=== PATIENT | female | born 1975 | race Caucasian/White ===

== ENCOUNTER 2018-07-24 07:33 | Emergency (ER) | payer OTHER ==
[~2018-07-24] VITALS: Ht 157.5 cm; Wt 95.3 kg
[~2018-07-24 07:33] MED LIST: multivitamins
[2018-07-24 07:42] VITALS: BP 133/68
[2018-07-24] MEDS ORDERED: ONDANSETRON 4 MG ODT PO ONE (07:45)
--- NOTE | 2018-07-24 07:45 | NUR ---
BIB SON WITH C/O EMESIS > 8 EPISODES X YESTERDAY; GENERAL WEAKNESS DENIES LOOSE/WATERY STOOLS HX--DENIES RX---NONE
[2018-07-24] MEDS ORDERED: KETOROLAC 60 MG/2 ML VIAL IM ONE (07:50)
[2018-07-24 09:23] VITALS: BP 127/71
--- NOTE | 2018-07-24 09:23 | NUR ---
Patient discharged with v/s stable. Written and verbal after care instructions given and explained. Patient alert, oriented and verbalized understanding of instructions. Ambulatory with steady gait. All questions addressed prior to discharge. ID band removed. Patient advised to follow up with PMD. Rx of motrin/zofran given. Patient educated on indication of medication including possible reaction and side effects. Opportunity to ask questions provided and answered.
== END 2018-07-24 09:23 | disposition home or self-care (01) ==
LOC: MED 07:33
DX: R11.2 Nausea with vomiting, unspecified (principal); R10.13 Epigastric pain; Z90.49 Acquired absence of other specified parts of digestive tract
CPT/HCPCS: 81002; 81025; 99283; J1885; Q0162

== ENCOUNTER 2018-07-30 04:16 | Emergency (ER) | payer OTHER ==
[~2018-07-30] VITALS: Ht 157.5 cm; Wt 90.7 kg
[2018-07-30 04:17] VITALS: BP 133/76
--- NOTE | 2018-07-30 04:23 | NUR ---
PT TAKEN TO BED 11
[2018-07-30] MEDS ORDERED: ONDANSETRON 4 MG/2 ML VIAL IVP ONE (04:25)
[2018-07-30] MEDS ORDERED: NACL 0.9% 1,000 ML IV ONE (04:25)
[2018-07-30] MEDS ORDERED: MORPHINE SULFATE 4 MG/ML SYR IVP ONE (04:25)
--- NOTE | 2018-07-30 04:33 | NUR ---
Dr. Arora evaluating patient at bedside.
--- NOTE | 2018-07-30 04:40 | NUR ---
PATIENT PRESENTS TO ED WITH ABD PAIN X 6 DAYS. PT STATES SHE HAS LOSS OF APPETITE, IS CONSTIPATED N/V, AND PAIN AT 8/10. ABD IS FLAT NON-TENDER, WITH BOWEL SOUNDS ACTIVE IN ALL 4 QUADRANTS. SKIN IS PINK/WARM/DRY; AAOX4 WITH EVEN AND STEADY GAIT; PT DENIES ANY FEVER, CP, SOB, OR COUGH AT THIS TIME; VSS; PATIENT POSITIONED FOR COMFORT; HOB ELEVATED; BEDRAILS UP X2; BED DOWN. ER MD MADE AWARE OF PT STATUS.
[2018-07-30 04:56] LABS: BASOPHILS # (AUTO) 0.1 K/uL (0.00-0.22); BASOPHILS % (AUTO) 1.1 % (0.0-2.0); EOSINOPHILS # (AUTO) 0.2 K/uL (0-0.4); EOSINOPHILS % (AUTO) 2.7 % (0.0-4.0); HEMATOCRIT 37.8 % (36-48); HEMOGLOBIN 12.4 g/dL (12.0-16.0); LYMPHOCYTES # (AUTO) 2.1 K/uL (2.5-16.5); LYMPHOCYTES % (AUTO) 30.1 % (20.5-51.1); MEAN CORPUSCULAR HEMOGLOBIN 27 pg (27-31); MEAN CORPUSCULAR HGB CONC 33 g/dL (33-37); MEAN CORPUSCULAR VOLUME 83.1 fL (80-94); MONOCYTES # (AUTO) 0.4 K/uL (0.8-1.0); MONOCYTES % (AUTO) 5.6 % (1.7-9.3); NEUTROPHILS # (AUTO) 4.3 K/uL (1.8-7.7); NEUTROPHILS % (AUTO) 60.5 % (42.2-75.2); PLATELET COUNT (AUTO) 335 K/uL (140-450); RED BLOOD CELL COUNT(AUTO) 4.55 MIL/uL (4.20-5.40); RED CELL DISTRIBUTION WIDTH 14.7 % (11.6-13.7); WHITE BLOOD COUNT (AUTO) 7.1 K/uL (4.8-10.8)
[2018-07-30 04:57] LABS: APPEARANCE,URINE CLEAR (CLEAR); BILIRUBIN,URINE NEGATIVE (NEGATIVE); BLOOD, URINE MODERATE (NEGATIVE); COLOR,URINE YELLOW (YELLOW); LEUKOCYTE ESTERASE ,URINE NEGATIVE (NEGATIVE); NITRITE, URINE NEGATIVE (NEGATIVE); UGLUCOSE NEGATIVE (NEGATIVE)
[2018-07-30 05:13] LABS: RBC,URINE 50-80 /HPF (0-5); WBC,URINE 0-5 (RARE) /HPF (0-5)
[2018-07-30 05:14] LABS: ANION GAP 10.9 (8-16); CREATININE 0.8 mg/dL (0.6-1.3); POTASSIUM 3.9 mmol/L (3.5-5.1)
[2018-07-30 05:17] LABS: ALBUMIN 3.4 g/dL (3.4-5.0); TOTAL BILIRUBIN 0.2 mg/dL (0.0-1.0)
--- NOTE | 2018-07-30 05:21 | NUR ---
PATIENT GOING TO CT
--- NOTE | 2018-07-30 05:35 | NUR ---
PT RETURNED FROM CT
--- NOTE | 2018-07-30 06:06 | NUR ---
Dr. Arora re-evaluating patient at bedside.
--- NOTE | 2018-07-30 06:15 | NUR ---
PT AMBULATED TO RESTROOM
[2018-07-30] MEDS ORDERED: KETOROLAC 30 MG/ML VIAL IVP ONE (06:20)
[2018-07-30 06:58] VITALS: BP 125/80
--- NOTE | 2018-07-30 06:58 | NUR ---
Patient discharged with v/s stable. Written and verbal after care instructions given and explained. Patient alert, oriented and verbalized understanding of instructions. Ambulatory with steady gait. All questions addressed prior to discharge. ID band removed. Patient advised to follow up with PMD. Rx of FLOMAX, NAPROSYN, COLACE, AND NORCO given. Patient educated on indication of medication including possible reaction and side effects. PT IS WAITING FOR KIDS TO COME PICK HER UP DUE TO MORPHINE ADMINISTERED. Opportunity to ask questions provided and answered.
== END 2018-07-30 06:58 | disposition home or self-care (01) ==
LOC: MED 04:16
DX: N20.1 Calculus of ureter (principal); Z79.899 Other long term (current) drug therapy; Z90.49 Acquired absence of other specified parts of digestive tract
CPT/HCPCS: 36415; 74176; 80053; 81001; 83690; 85025; 96361; 96374; 96375; 99284; J1885; J2270; J2405; J7030

== ENCOUNTER 2019-02-24 08:33 | Outpatient (CLI) | payer OTHER ==
[2019-02-24 08:59] LABS: BASOPHILS % (AUTO) 0.7 % (0.0-2.0); EOSINOPHILS # (AUTO) 0.1 K/uL (0-0.4); EOSINOPHILS % (AUTO) 2.1 % (0.0-4.0); HEMATOCRIT 36.4 % (36-48); HEMOGLOBIN 12.1 g/dL (12.0-16.0); LYMPHOCYTES # (AUTO) 1.7 K/uL (2.5-16.5); LYMPHOCYTES % (AUTO) 27.6 % (20.5-51.1); MEAN CORPUSCULAR HEMOGLOBIN 28 pg (27-31); MEAN CORPUSCULAR HGB CONC 33 g/dL (33-37); MEAN CORPUSCULAR VOLUME 83.1 fL (80-94); MONOCYTES # (AUTO) 0.4 K/uL (0.8-1.0); MONOCYTES % (AUTO) 6.1 % (1.7-9.3); NEUTROPHILS % (AUTO) 63.5 % (42.2-75.2); PLATELET COUNT (AUTO) 331 K/uL (140-450); RED BLOOD CELL COUNT(AUTO) 4.38 MIL/uL (4.20-5.40); RED CELL DISTRIBUTION WIDTH 14.7 % (11.6-13.7); WHITE BLOOD COUNT (AUTO) 6.3 K/uL (4.8-10.8)
[2019-02-24 09:08] LABS: BILIRUBIN,URINE NEGATIVE (NEGATIVE); BLOOD, URINE TRACE-I (NEGATIVE); COLOR,URINE YELLOW (YELLOW); LEUKOCYTE ESTERASE ,URINE 1+ (NEGATIVE); NITRITE, URINE NEGATIVE (NEGATIVE); UGLUCOSE NEGATIVE (NEGATIVE)
[2019-02-24 09:13] LABS: APPEARANCE,URINE SLIGHTLY HAZY (CLEAR); RBC,URINE 0-5 /HPF (0-5); WBC,URINE 0-5 /HPF (0-5)
[2019-02-24 09:13] LABS: ANION GAP 14.3 (8-16); CARBON DIOXIDE 26.9 mmol/L (21-32); CREATININE 0.8 mg/dL (0.6-1.3); POTASSIUM 4.2 mmol/L (3.5-5.1)
[2019-02-24 09:26] LABS: ALBUMIN 3.3 g/dL (3.4-5.0); CHOL/HDL RATIO 2.8 (1-4.5); THYROID STIMULATING HORMONE 2.75 uIU/mL (0.34-3.74); TOTAL BILIRUBIN 0.4 mg/dL (0.0-1.0)
[2019-02-24 10:29] LABS: MAGNESIUM 1.5 mg/dL (1.8-2.4)
[2019-02-25 09:10] LABS: ESTRADIOL SERUM 231.8 pg/mL (.); FOLLICLE STIMULATING HORMONE 1.4 mIU/mL (.); LUTEINIZING HORMONE 3.3 mIU/mL (.)
== END 2019-02-24 19:41 | disposition home or self-care (01) ==
LOC: MLB 08:33
DX: E55.9 Vitamin D deficiency, unspecified (principal); R53.83 Other fatigue; N20.0 Calculus of kidney; N92.4 Excessive bleeding in the premenopausal period
CPT/HCPCS: 36415; 80053; 81001; 82306; 82670; 83001; 83002; 83036; 83735; 84144; 84443; 85025; 86376; 87086